=== PATIENT | male | born 1950 | race Caucasian/White ===

== ENCOUNTER 2017-02-23 04:05 | Inpatient (IN) | payer OTHER ==
[~2017-02-23] VITALS: Ht 177.8 cm; Wt 82.1 kg
[2017-02-23] VITALS (9 sets, daily range): BP systolic 97–133; BP diastolic 64–83; PULSE 45–58; TEMP 36.2–37; O2SAT 97–100; Ht 177.8 cm; Wt 82.1 kg
[2017-02-23] MEDS ORDERED: SODIUM CHLORIDE 0.9% 1000ML 1,000 ML IV STA (04:10)
[2017-02-23] MEDS ORDERED: METOPROLOL TARTRATE 1 MG/ML VIAL ONE (04:10)
[2017-02-23] MEDS ORDERED: SODIUM CHLORIDE 0.9% 500ML 500 ML IV STA (04:10)
--- NOTE | 2017-02-23 04:13 | EMERGENCY ROOM VISIT NOTE ---
History Report prepared by Kuldip: Mariela Mars Under the Supervision of: Dr. Sana Grace M.D. First contact with patient: 04:04 Stated Complaint: CARDIAC ASSESSMENT History of Present Illness The patient is a 67 year old male who presents to the Emergency Room for a cardiac assessment. The patient woke up early this morning with chest pain and diaphoresis. He notified the front desk host that he was feeling unwell and they called EMS about 10-15 minutes after his symptoms began. He was brought to the ED by ambulance and given 3 mg of versed en route to the ED. He was cardioverted twice en route. The patient has a history of atrial fibrillation and he has been in V-tach before about 3 years ago. He had his pacemaker replaced about 15 months ago. The patient had 3 beers tonight. Source of History: patient, EMS Onset: this morning Position: chest Timing: constant Associated Symptoms: + diaphoresis Review of Systems See HPI for pertinent positives & negatives. A total of 10 systems reviewed and were otherwise negative. Past Medical & Surgical Medical Problems: (1) Atrial fibrillation (2) Pacemaker (3) Ventricular tachycardia Surgical Problems: (1) AICD (automatic cardioverter/defibrillator) present Family History No pertinent history stated. Social History Alcohol Use: occasionally Marital Status: Occupation Status: employed Current/Historical Medications Scheduled Aspirin (Aspirin Ec), 81 MG PO DAILY Ferrous Sulfate (Iron), 325 MG PO DAILY Fish Oil ([place]-3), 1 CAP PO DAILY Glucosamine-Chondroitin (Glucosamine & Chondroitin 500-400 mg), 1 CAP PO DAILY Lovastatin (Mevacor), 20 MG PO DAILY Ramipril (Ramipril), 2.5 MG PO DAILY Sotalol Hcl (Sotalol Hcl), 120 MG PO BID Allergies Coded Allergies: No Known Allergies (Unverified , 02/23/17) Physical Exam Vital Signs Date Time Temp Pulse Resp B/P Pulse Ox O2 Delivery O2 Flow Rate FiO2 02/23/17 05:20 59 13 99 02/23/17 05:16 116/86 02/23/17 05:05 60 17 98 02/23/17 05:01 62 20 96/72 98 Nasal Cannula 2.0 02/23/17 05:00 60 19 97 02/23/17 04:55 60 21 99 02/23/17 04:50 61 22 99 02/23/17 04:46 84/68 02/23/17 04:45 69 18 97 02/23/17 04:44 94/72 02/23/17 04:40 60 22 100 02/23/17 04:35 57 10 106/71 100 02/23/17 04:30 61 14 98 02/23/17 04:25 95 23 91/74 02/23/17 04:22 88/61 02/23/17 04:21 74/62 02/23/17 04:20 153 16 02/23/17 04:19 154 20 72/64 98 Nasal Cannula 2.0 02/23/17 04:19 Nasal Cannula 2.0 02/23/17 04:18 93/53 02/23/17 04:16 155 02/23/17 04:15 157 19 69/52 02/23/17 04:13 43/36 02/23/17 04:10 156 15 76/56 Physical Exam Vital signs reviewed. General: Critically ill-appearing 67 year old male, in no significant distress, hypotensive. Initially unable to measure pulse ox or oral temperature. HEENT: No scleral icterus, PERRLA, neck supple. Atraumatic. Cardiovascular: Tachycardic rate and regular rhythm, no extra sounds. Pulmonary: Clear to auscultation bilaterally, normal work of breathing. Abdomen: Soft, nontender, nondistended, positive bowel sounds. Musculoskeletal: Atraumatic, no peripheral edema. Neurologic: Patient awake alert and oriented x 3, he is able to answer most questions appropriately, full strength in all 4 extremities. Cranial nerves 2 through 12 grossly intact. Speech is slurred. Skin: Warm, diaphoretic, no rash Medical Decision & Procedures ER Provider Diagnostic Interpretation: A repeat ECG reveals a sinus rhythm with PACs at 70 BPM, marked ST abnormality diffusely, no ST elevation. The sinus rhythm has replaced the wide complex tachycardia. Chest x-ray as interpreted by myself reveals pacemaker visualized, external defibrillation pads seen, no focal lung consolidation or failure, no pneumothorax. Laboratory Results 02/23/17 04:34 Red Blood Count 4.49, Mean Corpuscular Volume 94.4, Mean Corpuscular Hemoglobin 32.7, Mean Corpuscular Hemoglobin Concent 34.7, Mean Platelet Volume 9.8, Neutrophils (%) (Auto) 64.8, Lymphocytes (%) (Auto) 24.9, Monocytes (%) (Auto) 7.7, Eosinophils (%) (Auto) 1.9, Basophils (%) (Auto) 0.4, Neutrophils # (Auto) 5.07, Lymphocytes # (Auto) 1.95, Monocytes # (Auto) 0.60, Eosinophils # (Auto) 0.15, Basophils # (Auto) 0.03 02/23/17 04:34 Test 02/23/17 04:10 02/23/17 04:18 02/23/17 04:34 Bedside Hemoglobin 15.6 g/dl (14.0-18.0) Bedside Hematocrit 46 % (42-52) Bedside Sodium 143 mEq/L (135-144) Bedside Potassium 3.4 mEq/L (3.3-5.0) Bedside Chloride 106 mEq/L (101-112) Bedside Total CO2 20 mEq/l (24-31) Bedside Blood Urea Nitrogen 16 mg/dl (7-18) Bedside Creatinine 1.0 mg/dl (0.6-1.3) Bedside Glucose (other) 99 mg/dl (70-99) Bedside Ionized Calcium (Ishaan) 1.05 mmol/l (1.12-1.32) White Blood Count 7.82 K/uL (4.8-10.8) Red Blood Count 4.49 M/uL (4.7-6.1) Hemoglobin 14.7 g/dL (14.0-18.0) Hematocrit 42.4 % (42-52) Mean Corpuscular Volume 94.4 fL (80-100) Mean Corpuscular Hemoglobin 32.7 pg (25-34) Mean Corpuscular Hemoglobin Concent 34.7 g/dl (32-36) Platelet Count 164 K/uL (130-400) Mean Platelet Volume 9.8 fL (7.4-10.4) Neutrophils (%) (Auto) 64.8 % Lymphocytes (%) (Auto) 24.9 % Monocytes (%) (Auto) 7.7 % Eosinophils (%) (Auto) 1.9 % Basophils (%) (Auto) 0.4 % Neutrophils # (Auto) 5.07 K/uL (1.4-6.5) Lymphocytes # (Auto) 1.95 K/uL (1.2-3.4) Monocytes # (Auto) 0.60 K/uL (0.11-0.59) Eosinophils # (Auto) 0.15 K/uL (0-0.5) Basophils # (Auto) 0.03 K/uL (0-0.2) RDW Standard Deviation 41.4 fL (36.4-46.3) RDW Coefficient of Variation 12.2 % (11.5-14.5) Immature Granulocyte % (Auto) 0.3 % Immature Granulocyte # (Auto) 0.02 K/uL (0.00-0.02) Anion Gap 9.0 mmol/L (3-11) Est Creatinine Clear Calc Drug Dose 67.1 ml/min Estimated GFR () 80.1 Estimated GFR (Non- 69.1 BUN/Creatinine Ratio 15.0 (10-20) Calcium Level 8.0 mg/dl (8.5-10.1) Magnesium Level 2.1 mg/dl (1.8-2.4) Total Bilirubin 1.1 mg/dl (0.2-1) Direct Bilirubin 0.4 mg/dl (0-0.2) Aspartate Amino Transf (AST/SGOT) 92 U/L (15-37) Alanine Aminotransferase (ALT/SGPT) 79 U/L (12-78) Alkaline Phosphatase 38 U/L (45-117) Total Creatine Kinase 114 U/L (39-308) Creatine Kinase MB 3.1 ng/ml (0.5-3.6) Creatine Kinase MB Ratio 2.7 (0-3.0) Troponin I 0.079 ng/ml (0-0.045) Total Protein 6.2 gm/dl (6.4-8.2) Albumin 3.5 gm/dl (3.4-5.0) Thyroid Stimulating Hormone (TSH) 9.990 uIu/ml (0.300-4.500) Ethyl Alcohol mg/dL 51.0 mg/dl (0-3) Laboratory results per my review. Medications Administered Medications (Trade) Dose Ordered Sig/Andres Route Start Time Stop Time Status Last Admin Dose Admin Sodium Chloride (Nss 500ml) 500 ml @ 999 mls/hr Q31M STAT IV 02/23/17 04:10 02/23/17 04:40 DC 02/23/17 04:10 999 MLS/HR Amiodarone HCL/ Dextrose (Nexterone / D5w) 360 mg STK-MED ONCE .ROUTE 02/23/17 04:18 02/23/17 04:19 DC 02/23/17 04:30 360 MG Potassium Chloride (Kcl 10 Meq / Wtr) 10 meq STK-MED ONCE IV 02/23/17 04:25 02/23/17 04:26 DC 02/23/17 04:25 10 MEQ Magnesium Sulfate (Magnesium Sulfate) 1 gm STK-MED ONCE .ROUTE 02/23/17 04:27 02/23/17 04:28 DC 02/23/17 04:27 1 GM Fentanyl Citrate (Fentanyl Inj) 100 mcg STK-MED ONCE .ROUTE 02/23/17 04:42 02/23/17 04:43 DC 02/23/17 04:22 100 MCG Miscellaneous Information (Nursing Verbal Med Order) 1 ea ONE ONCE N/A 02/23/17 04:45 02/23/17 04:47 DC 02/23/17 04:10 1 EA Procedure Indication: Ventricular tachycardia Written consent was obtained after the risks and benefits were explained, including but not limited to pain, thermal burn, allergic reaction, aspiration, airway obstruction, laryngospasm, infection, hypotension, and cardiorespiratory arrest. At this time, the risks of the procedure are less than the risks of NOT performing the procedure. A time out was taken and the correct patient and procedure identified. The patient was on 100% via NRB and end tidal CO2 monitoring prior to the procedure. Suction, airway equipment, medications, respiratory equipment, ACLS cart, and appropriate personnel were prepared prior to the initiation of the procedure. Patient was given 100 mcg of Fentanyl. The biphasic defibrillator was set to 200 joules of energy and synched. After confirmation of sedation and "all clear" safety check the synchronized shock was delivered. This resulted in successful conversion of the dysrhythmia back into sinus rhythm. See nursing notes for dosages and times. There were no complications and the patient recovered uneventfully from the procedure. ECG Indication: chest pain Rate (beats per minute): 157 Rhythm: v-tach Findings: other (possible old inferior infarct; LVH, repolarization abnormality ) Comparison ECG Date: no prior available ED Course 0406: Past medical records reviewed. The patient was evaluated in room B1. A complete history and physical examination was performed. 0410: NSS 1000 ml @ 125 mls/hr IV, NSS 500 ml @ 999 mls/hr IV 0418: Amiodarone HCl/Dextrose 150 mg bolus 0422: Please see the procedure note for cardioversion. 0425: Potassium Chloride 10 meq IV 0427: Magnesium Sulfate 1 gm IV 0442: Fentanyl Citrate 100 mcg IV 0451: I reassessed the patient. He is doing well. I updated him on the results and treatment plan. I answered all pertaining questions that he had. He expressed understanding and verbalized agreement. 0458: At this time I spoke with Dr. Parsons. We discussed the patient's case. The patient will be evaluated by the [facility] for further management. Medical Decision Differential diagnosis: Etiologies such as premature contractions, electrolyte abnormality, cardiac dysrhythmia, thyroid dysfunction, pulmonary embolism, infection, gastrointestinal, alcohol intoxication, as well as others were entertained. This patient was evaluated and appeared to be in no distress. Patient is found to be hypotensive. He was hydrated with normal saline solution. Patient is found to be in a wide-complex tachycardia to EMS cardioversions. Patient was given 150 mg of IV amiodarone and cardioverted once again with 200 J biphasic. The patient did receive 100 g of fentanyl prior to this procedure. He was still be from the Versed given in route. The patient's blood pressure improved tremendously. He remained in a sinus rhythm with frequent PACs. Patient was given 1 g of IV magnesium, 10 mEq of IV potassium while awaiting formal laboratory work. Patient's troponin is found to be mildly elevated. He clinically was much improved after the above interventions. The case was discussed with the hospitalist service, Dr. Jackson who evaluated the patient for admission and further management. Please see his notes for further details. The patient is aware of the plan and agrees. Consults Time Called: [phone] Consulting Physician: Dr. Parsons Returned Call: [phone] At this time I spoke with Dr. Parsons. We discussed the patient's case. The patient will be evaluated by the [facility] for further management. Impression Primary Impression: Ventricular tachycardia Critical Care I have personally spent greater than 45 minutes of critical care time in the direct management of this patient. This includes bedside care, interpretation of diagnostic studies, and testing, discussion with consultants, patient, and family members, and other required patient management activities. This 45 minutes is in excess of all separately billable procedures. Scribe Attestation The scribe's documentation has been prepared under my direction and personally reviewed by me in its entirety. I confirm that the note above accurately reflects all work, treatment, procedures, and medical decision making performed by me. Departure Information Dispostion Being Evaluated By Hospitalist
[2017-02-23] MEDS ORDERED: AMIODARONE 360MG / 200ML D5W ONE (04:18)
[2017-02-23] MEDS ORDERED: POTASSIUM CHLORIDE 10 MEQ / 100ML WTR IV ONE (04:25)
[2017-02-23] MEDS ORDERED: MAGNESIUM SULFATE 1GM / D5W 1 GM BAG ONE (04:27)
[2017-02-23 04:31] LABS: ISTAT HEMOGLOBIN 15.6 g/dl (14.0-18.0); ISTAT IONIZED CALCIUM 1.05 mmol/l (1.12-1.32)
[2017-02-23] MEDS ORDERED: FENTANYL CITRATE INJ 50 MCG/1 ML 2 ML VIAL ONE (04:42)
[2017-02-23] MEDS ORDERED: NURSING VERBAL MED ORDER ONE (04:45)
[2017-02-23 04:48] LABS: BASO % 0.4 %; BASO ABS # 0.03 K/uL (0-0.2); COMPLETE YES; EOS % 1.9 %; HEMATOCRIT 42.4 % (42-52); IG% 0.3 %; LYMPH % 24.9 %; LYMPH ABS # 1.95 K/uL (1.2-3.4); MEAN CELL VOLUME 94.4 fL (80-100); MEAN CORPUSCULAR HEMOGLOBIN 32.7 pg (25-34); MEAN CORPUSCULAR HGB CONC 34.7 g/dl (32-36); MEAN PLATELET VOLUME 9.8 fL (7.4-10.4); MONO % 7.7 %; NEUT % 64.8 %; PLATELET COUNT 164 K/uL (130-400); RED BLOOD COUNT 4.49 M/uL (4.7-6.1); WHITE BLOOD COUNT 7.82 K/uL (4.8-10.8)
[2017-02-23] MEDS ORDERED: RAMI2.5C PO (04:52)
[2017-02-23] MEDS ORDERED: SOTA120T PO (04:53)
[2017-02-23] MEDS ORDERED: LOVA20TA4 PO (04:54)
[2017-02-23] MEDS ORDERED: ASPI81TA28 PO (04:55)
[2017-02-23] MEDS ORDERED: FERR1TAB23 PO (04:56)
[2017-02-23] MEDS ORDERED: OMEG10007 PO (04:57)
[2017-02-23] MEDS ORDERED: GLUC1CAP35 PO (04:58)
[2017-02-23] MEDS ORDERED: GLUC1CAP33 PO (05:00)
[2017-02-23 05:05] LABS: CREATININE 1.1 mg/dl (0.60-1.40); MAGNESIUM 2.1 mg/dl (1.8-2.4); POTASSIUM 3.7 mmol/L (3.5-5.1)
[2017-02-23 05:25] LABS: CKMB/CK RATIO 2.7 (0-3.0); THYROID STIMULATING HORMONE 9.99 uIu/ml (0.300-4.500)
[2017-02-23] MEDS ORDERED: MoRPHine SULFATE 2 MG/ML CARP IV PRN (05:30)
[2017-02-23] MEDS ORDERED: ACETAMINOPHEN 325 MG TAB PO PRN (05:30)
[2017-02-23] MEDS ORDERED: LORAZEPAM 2 MG/ML 1 ML VIAL IV PRN (05:30)
[2017-02-23] MEDS ORDERED: AMIODARONE IV BOLUS / DRIP IV STA (05:33)
[2017-02-23] MEDS ORDERED: AMIODARONE / D5W 200 ML IV SCH ×2 (07:00→13:00)
--- NOTE | 2017-02-23 07:10 | History and Physical ---
History & Physical Date & Time of Service: February 23, 2017 at 06:56 Chief Complaint: Aicd Present, Ventricular Tachycardia Primary Care Physician: No Doctor, Assigned History of Present Illness Source: patient The patient is a 67-year-old male who presents to the emergency department after having an episode of V. tach with a rate around 150 in the outpatient setting. Patient has a known history of V. tach, and has had his AICD fired 3 times in the past 2 months. There is a question as to whether it's been associated with high levels of activity in short bursts or low levels of activity in longer ranges. He reports that he's run a total of 17 marathons. In either case, the patient has been in town [facility] , had a 12 hour long day where he didn't eat much or drink much, then went out to local restaurant had a beer, then ate a chicken sandwich, then had 2 more beers , and then went back to his hotel and fell asleep Shortly thereafter he woke up, went to the bathroom, and while in the bathroom developed severe sweating, at which time he called for help. When EMS arrived he was found to be in V. tach at a rate of 150. While en route to the hospital he received 3 mg of Versed and was shocked twice externally. Upon arrival to the ED his heart rate was still around 150, and he was shocked again, then given an amiodarone 150 mg IV bolus followed by amiodarone drip and since then has converted to sinus rhythm. His systolic blood pressure was in the mid 70s while in V. tach, and since that time of conversion is now with systolic in the low 100s. Past Medical/Surgical History Medical Problems: (1) Atrial fibrillation Status: Chronic (2) Pacemaker Status: Chronic Social History Smoking Status: Never Smoker Smokeless Tobacco Use: No Alcohol Use: socially Drug Use: none Housing status: lives with family Occupational Status: employed Multi-Drug Resistant Organisms History of MDRO: No Allergies Coded Allergies: No Known Allergies (Unverified , 02/23/17) Home Medications Scheduled Aspirin (Aspirin Ec), 81 MG PO DAILY Ferrous Sulfate (Iron), 325 MG PO DAILY Fish Oil ([place]-3), 1 CAP PO DAILY Glucosamine-Chondroitin (Glucosamine & Chondroitin 500-400 mg), 1 CAP PO DAILY Lovastatin (Mevacor), 20 MG PO DAILY Ramipril (Ramipril), 2.5 MG PO DAILY Sotalol Hcl (Sotalol Hcl), 120 MG PO BID Review of Systems Constitutional: No chills, No fatigue, No fever, No problem reported, No sweats , No weakness, No weight loss Eyes: No diplopia, No discharge, No eye pain, No problem reported, No redness, No worsening of vision ENT: No dental problems, No hearing loss, No nasal symptoms, No problem reported, No sore throat, No tinnitus, No trouble swallowing, No unusual epistaxis Respiratory: No cough, No dyspnea at rest, No dyspnea on exertion, No hemoptysis, No problem reported, No shortness of breath, No sputum, No wheezing Cardiovascular: + palpitations, No PND, No chest pain, No claudication, No edema, No orthopnea, No problem reported Abdomen: No GI bleeding, No constipation, No diarrhea, No nausea, No pain, No problem reported, No vomiting Musculoskeletal: No calf pain, No joint pain, No muscle pain, No problem reported, No swelling Genitourinary - Male: No dysuria, No hematuria, No impotence, No lesions, No penile discharge, No problem reported, No urinary frequency, No urinary hesitancy, No urinary incontinence, No urinary retention, No urinary urgency Neurologic: No balance problems, No memory loss, No numbness/tingling, No paralysis, No problem reported, No vertigo, No weakness Psychiatric: No anhedonism, No anxiety, No depression symptoms, No insomnia, No problem reported, No substance abuse Endocrine: No excessive thirst, No excessive urination, No fatigue, No problem reported Hematologic / Lymphatic: No abnormal bleeding/bruising, No clotting problems, No night sweats, No problem reported, No swollen lymph nodes Integumentary: No bleeding, No color change, No itch, No new/changing skin lesions, No problem reported, No rash Allergic / Immunologic: No environmental allergies, No food allergies, No frequent infections, No hives, No pet sensitivities, No poor healing, No problem reported, No prolonged convalescence, No seasonal allergies Physical Exam Vital Signs Date Time Temp Pulse Resp B/P Pulse Ox O2 Delivery O2 Flow Rate FiO2 02/23/17 05:50 43 16 100 02/23/17 05:45 94/72 02/23/17 05:39 43 02/23/17 05:35 54 15 100 02/23/17 05:31 95/74 02/23/17 05:20 59 13 99 02/23/17 05:16 116/86 02/23/17 05:05 60 17 98 02/23/17 05:01 62 20 96/72 98 Nasal Cannula 2.0 02/23/17 05:00 60 19 97 02/23/17 04:55 60 21 99 02/23/17 04:50 61 22 99 02/23/17 04:46 84/68 02/23/17 04:45 69 18 97 02/23/17 04:44 94/72 02/23/17 04:40 60 22 100 02/23/17 04:35 57 10 106/71 100 02/23/17 04:30 61 14 98 02/23/17 04:25 95 23 91/74 02/23/17 04:22 88/61 02/23/17 04:21 74/62 02/23/17 04:20 153 16 02/23/17 04:19 154 20 72/64 98 Nasal Cannula 2.0 02/23/17 04:19 Nasal Cannula 2.0 02/23/17 04:18 93/53 02/23/17 04:16 155 02/23/17 04:15 157 19 69/52 02/23/17 04:13 43/36 02/23/17 04:10 156 15 76/56 General Appearance: WD/WN, no apparent distress Head: normocephalic, atraumatic Eyes: normal inspection, PERRL, EOMI, sclerae normal ENT: normal ENT inspection, hearing grossly normal, pharynx normal Neck: supple, no adenopathy, thyroid normal, no JVD, no carotid bruits, trachea midline Respiratory/Chest: chest non-tender, lungs clear, normal breath sounds, no respiratory distress, no accessory muscle use Cardiovascular: regular rate, rhythm, no edema, no gallop, no JVD, no murmur, normal peripheral pulses Abdomen/GI: normal bowel sounds, non tender, soft, no organomegaly, no pulsatile mass Back: normal inspection, no CVA tenderness, no muscle spasm, normal range of motion Extremities/Musculoskelatal: normal inspection, no calf tenderness, normal capillary refill, no pedal edema, normal range of motion, non-tender Neurologic/Psych: 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 II-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 nml as tested, no motor/sensory deficits, alert, normal mood/affect, normal reflexes, oriented x 3 Skin: normal color, warm/dry, no rash Lymphatic: no adenopathy Diagnostics Laboratory Results Results Past 24 Hours Test 02/23/17 04:10 02/23/17 04:18 02/23/17 04:34 Range/Units Bedside Hemoglobin 15.6 14.0-18.0 g/dl Bedside Hematocrit 46 42-52 % Bedside Sodium 143 135-144 mEq/L Bedside Potassium 3.4 3.3-5.0 mEq/L Bedside Chloride 106 101-112 mEq/L Bedside Total CO2 20 24-31 mEq/l Anion Gap 22.0 9.0 3-11 mmol/L Bedside Blood Urea Nitrogen 16 7-18 mg/dl Bedside Creatinine 1.0 0.6-1.3 mg/dl Bedside Glucose (other) 99 70-99 mg/dl Bedside Ionized Calcium (Ishaan) 1.05 1.12-1.32 mmol/l White Blood Count 7.82 4.8-10.8 K/uL Red Blood Count 4.49 4.7-6.1 M/uL Hemoglobin 14.7 14.0-18.0 g/dL Hematocrit 42.4 42-52 % Mean Corpuscular Volume 94.4 80-100 fL Mean Corpuscular Hemoglobin 32.7 25-34 pg Mean Corpuscular Hemoglobin Concent 34.7 32-36 g/dl Platelet Count 164 130-400 K/uL Mean Platelet Volume 9.8 7.4-10.4 fL Neutrophils (%) (Auto) 64.8 % Lymphocytes (%) (Auto) 24.9 % Monocytes (%) (Auto) 7.7 % Eosinophils (%) (Auto) 1.9 % Basophils (%) (Auto) 0.4 % Neutrophils # (Auto) 5.07 1.4-6.5 K/uL Lymphocytes # (Auto) 1.95 1.2-3.4 K/uL Monocytes # (Auto) 0.60 0.11-0.59 K/uL Eosinophils # (Auto) 0.15 0-0.5 K/uL Basophils # (Auto) 0.03 0-0.2 K/uL RDW Standard Deviation 41.4 36.4-46.3 fL RDW Coefficient of Variation 12.2 11.5-14.5 % Immature Granulocyte % (Auto) 0.3 % Immature Granulocyte # (Auto) 0.02 0.00-0.02 K/uL Sodium Level 144 136-145 mmol/L Potassium Level 3.7 3.5-5.1 mmol/L Chloride Level 110 98-107 mmol/L Carbon Dioxide Level 25 21-32 mmol/L Blood Urea Nitrogen 16 7-18 mg/dl Creatinine 1.10 0.60-1.40 mg/dl Est Creatinine Clear Calc Drug Dose 67.1 ml/min Estimated GFR () 80.1 Estimated GFR (Non- 69.1 BUN/Creatinine Ratio 15.0 10-20 Random Glucose 134 70-99 mg/dl Calcium Level 8.0 8.5-10.1 mg/dl Magnesium Level 2.1 1.8-2.4 mg/dl Total Bilirubin 1.1 0.2-1 mg/dl Direct Bilirubin 0.4 0-0.2 mg/dl Aspartate Amino Transf (AST/SGOT) 92 15-37 U/L Alanine Aminotransferase (ALT/SGPT) 79 12-78 U/L Alkaline Phosphatase 38 45-117 U/L Total Creatine Kinase 114 39-308 U/L Creatine Kinase MB 3.1 0.5-3.6 ng/ml Creatine Kinase MB Ratio 2.7 0-3.0 Troponin I 0.079 0-0.045 ng/ml Total Protein 6.2 6.4-8.2 gm/dl Albumin 3.5 3.4-5.0 gm/dl Thyroid Stimulating Hormone (TSH) 9.990 0.300-4.500 uIu/ml Ethyl Alcohol mg/dL 51.0 0-3 mg/dl Impression Assessment and Plan Sustained V. tach in the outpatient setting/status post total of 3 shocks/on amiodarone drip after 150 mg IV bolus per protocol--the patient has converted to sinus rhythm. He'll be admitted to the ICU. We'll continue amiodarone drip , normal saline with potassium chloride 20 mEq at 100 ML's per hour, sotalol 120 mg by mouth twice a day, enteric-coated aspirin 81 mg by mouth daily. Hold ramipril 2.5 mg by mouth daily. We'll consult Dr. Quiroga for cardiology assessment, and consult Dr. Barrett for nurse executive services. Hypercholesterolemia--continue lovastatin 20 mg by mouth daily. Level of Care Critical Care Advanced Directives Existing Advance Directive: No Existing Living Will: No Existing Power of Logistics Manager: No Resuscitation Status FULL RESUSCITATION VTE Prophylaxis VTE Risk Assessment Done? Y/N: Yes Risk Level: Moderate Given or contraindicated: SCD's Note Total Time: Critical Care 30 - 74 minutes
[2017-02-23] MEDS: ASPIRIN 81 MG ECTAB PO SCH (07:34)
[2017-02-23] MEDS: NSS + 20MEQ KCL 1000ML 1,000 ML IV SCH ×2 (07:34→19:06)
[2017-02-23] MEDS: FERROUS SULFATE 325 MG TAB PO SCH (07:35)
[2017-02-23] MEDS: LOVASTATIN 20 MG TAB PO SCH (07:35)
[2017-02-23] MEDS: OMEGA-3 (PURIFIED FISH OIL) 1 GM CAP PO SCH (07:35)
[2017-02-23] MEDS: SOTALOL HCL 80 MG TAB PO SCH ×2 (07:35→20:26)
--- NOTE | 2017-02-23 08:12 | DIAGNOSTIC IMAGING REPORT ---
CHEST ONE VIEW PORTABLE HISTORY: tachycardia COMPARISON: None. FINDINGS: The heart is mildly enlarged. Left-sided pacemaker/defibrillator. There is a defibrillator pad overlying the right hemithorax. There is mild central pulmonary vascular congestion without overt edema. No focal lung consolidations. No pleural effusions. No pneumothorax. IMPRESSION: Mild central pulmonary vascular congestion without overt edema. Electronically signed by: Brian Subramanian M.D. 02/23/2017 8:11 AM Dictated Date/Time: 02/23/2017 8:10 AM
[2017-02-23] MEDS ORDERED: [UNRECOGNIZED DRUG - OTHER] PO SCH (09:00)
[2017-02-23] MEDS ORDERED: GLUCOSAMINE CHONDROITIN PO SCH (09:00)
[2017-02-23 10:52] LABS: URINE APPEARANCE CLEAR (CLEAR); URINE BILIRUBIN NEG (NEG); URINE COLOR YELLOW; URINE EPITHELIAL CELL AUTO >30 /lpf (0-5); URINE NITRITE NEG (NEG); URINE PH 7.5 (4.5-7.5); URINE SPECIFIC GRAVITY 1.014 (1.000-1.030); UROBILINOGEN NEG (NEG); ZZUR CULT IF INDIC CLEAN CATCH YES
[2017-02-23 11:07] LABS: MANUAL MICROSCOPIC REQUIRED? NO; REVIEW REQ? YES; SULFASALICYLIC ACID POS (NEG)
[2017-02-23 11:13] LABS: URINE PATH CASTS 5-10 GRANULAR CASTS /lpf (0)
[2017-02-23 11:22] LABS: BENZODIAZEPINE, URINE POS (NEG); COCAINE,URINE NEG (NEG); PHENCYCLIDINE, URINE NEG (NEG)
--- NOTE | 2017-02-23 12:22 | CARDIOLOGY CONSULTATION ---
DATE OF CONSULTATION: 02/23/2017 REFERRING PHYSICIAN: Dmitri Barrett DO. CHIEF COMPLAINTS: Ventricular tachycardia. HISTORY OF PRESENT ILLNESS: Mr. Ike Isabel is a 67-year-old gentleman with a history of an idiopathic ventricular tachycardia. 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 The patient states that he in general had been feeling well, although yesterday's event was outside in the rain for an extended period of time. He did report feeling somewhat cold and perhaps not keeping up with fluids. That evening, the patient went out to a restaurant and had 3 beers prior to retiring. In the middle of the night, the patient woke with a sensation of feeling "anxious." He went to the bathroom to have a bowel movement and noticed that he was sweating profusely. At that point, he also noticed that he was quite dizzy and lightheaded and realized that he could not feel his pulse. The patient was able to alert the hotel staff and EMS was called. On their arrival, the patient was felt to be in ventricular tachycardia and an attempt was made to cardiovert him. He was brought to [facility] for additional evaluation, but was still in a wide-complex tachycardia on presentation. The patient was subsequently sedated and underwent an additional cardioversion, this time successful. The patient was subsequently admitted to the intensive care unit, where he is interviewed currently. At the time of the interview, the patient claims to be feeling well. He has no symptoms currently of diaphoresis or significant breathing trouble. He is not feeling anxious. He does not feel any palpitations. He is not lightheaded. During yesterday's event, he did not report any symptoms of chest discomfort or chest pressure. Otherwise, he has been feeling well leading up to this event and claims to be compliant with his medications. PAST MEDICAL HISTORY: 1. Atrial fibrillation. The patient has a very remote history of atrial fibrillation and is status post pulmonary vein isolation with good result. 2. Idiopathic ventricular tachycardia. The patient began to have episodes with running in 2007. Evaluation at that time revealed him to have idiopathic ventricular tachycardia. He did undergo an attempted VT ablation and implantation of a dual-chamber Medtronic defibrillator. He does recall around that time undergoing coronary angiography and he has had recent stress testing and echocardiography. He is not known to have a cardiomyopathy. 3. Prostate cancers. 4. Hypercholesterolemia. PAST SURGICAL HISTORY: 1. Prostatectomy. 2. Defibrillator implantation initially in 2007 with a generator change in 2014. This is a Medtronic dual chamber device. 3. Pulmonary vein isolation in 2006 at the [facility]. 4. VT ablation, unknown date. OUTPATIENT MEDICATIONS: Include sotalol 120 mg b.i.d., ramipril, lovastatin, aspirin 81 mg daily, fish oil and iron supplementation. MEDICAL ALLERGIES: No known medical allergies. FAMILY HISTORY: No family history of premature coronary artery disease or sudden cardiac . SOCIAL HISTORY: The patient is an avid runner. 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 He has no history of tobacco use and drinks alcohol socially. Currently lives in [place]. REVIEW OF SYSTEMS: A complete 10-system review of systems was performed and the pertinent positives noted in the history of present illness, the remainder being negative. PHYSICAL EXAMINATION: GENERAL: The patient does not appear in any acute distress. He is a pleasant individual, who is alert and oriented. His mood and affect appeared normal. He answered all questions appropriately. CURRENT VITAL SIGNS: Include a blood pressure of 98/64 with a pulse of 54. HEENT: His sclerae are anicteric. His pupils are equal and react to light and accommodation. Extraocular movements were intact. NECK: Palpation of submandibular region did not reveal any significant lymphadenopathy. The carotids are palpable bilaterally. I do not appreciate any bruits on auscultation. There is no evidence of jugular venous distention. The thyroid is not enlarged. LUNGS: Auscultation of both lungs revealed them to be clear in the apices. He had good air movement without rales, wheezes or rhonchi. There was no use of accessory muscles of respiration. CARDIAC: Reveals him to be in a regular rhythm. S1 and S2 appear to be normal. I did not appreciate any murmurs on exam. PMI was not markedly displaced. Examination of the chest revealed him to have a well-healed defibrillator in the left upper chest area. There is no evidence of hematoma or erythema. ABDOMEN: Soft and nontender. EXTREMITIES: Evaluation of both wrists revealed radial pulses that were equal in intensity. There is no evidence of cyanosis or clubbing. Evaluation of lower extremities reveals SCDs in place, but no notable edema. I did not appreciate any rashes on examination today. LABORATORY STUDIES: Include a white cell count of 7.8, a hemoglobin of 14.7 and a platelet count of 164. Sodium is 144, potassium is 3.7, BUN was 16, and creatinine was 1.1. Cardiac troponin drawn at the time of admission was 0.079. TSH was elevated at 9.9. IMAGING DATA: A 12-lead EKG was obtained at the time of presentation, which revealed a wide-complex tachycardia of unusual morphology. I performed an interrogation of the patient's ICD, which did not reveal any recorded tachyarrhythmia episodes. Also performed reprogramming of the device to include a monitoring zone and lowered the initial therapy zone to 163 beats per minute. ASSESSMENT AND PLAN: 1. Sustained ventricular tachycardia: The patient has a history of idiopathic ventricular tachycardia. 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 It seems that he has not had an episode in several years and episodes in general tend to occur when he is either under stress or perhaps dehydrated or otherwise sick. It is unclear whether the events experienced yesterday including a prolonged period of being cold in the rain associated with mild dehydration and alcohol intake precipitated this episode. He does not have any electrolyte derangements. He has a very mild elevation in cardiac troponin, which may be demand related given the hypotension he experienced on presentation. He was started on amiodarone, but I think we can safely discontinue this and reinitiate his sotalol at the current dose. 2. Elevated cardiac troponin. This is likely demand related. I do not believe that the event yesterday resulted from an acute coronary syndrome. The patient did not have symptoms of chest discomfort. He is known to have a normal stress test within the past 2 years. He received no specific treatment for an acute coronary syndrome and currently is feeling well. I think we can trend his biomarkers and make a decision regarding the need for any ischemic evaluation later today. 3. Elevated thyroid-stimulating hormone: The patient may have subclinical hypothyroidism. We will defer evaluation to the primary medical service. Does not Sound like this played a significant role in his event yesterday, but should be addressed nonetheless. FINAL RECOMMENDATIONS: 1. Discontinue amiodarone. 2. Continue oral sotalol. 3. Transfer to telemetry zamora. 4. Increase ambulation and activity today. 5. Continue to trend cardiac biomarkers. 6. Address elevated thyroid-stimulating hormone. 7. In the absence of new findings, consider discharge tomorrow. MTDD
--- NOTE | 2017-02-23 13:03 | Critical Care Consultation ---
Critical Care Consultation Date of Consultation: February 23, 2017. Attending Physician: Manish Parsons M.D. Reason for Consultation: Ventricular tachycardia with defibrillation History of Present Illness This very pleasant 67-year-old male, with a history of paroxysmal ventricular tachycardia and AICD in place. He lives in [facility], and is in [place] on business. The patient notes that he is in his usual state of health yesterday. 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 After evening meal, and 3 units of beer he states that he went back to his hotel room and in his usual state of health was able to go to sleep. He suddenly awoken at 3 in the morning,he felt extremely diaphoretic. He walked to the washroom had a bowel movement, and states that the 20 feet he needed to walk to get back to his bed and felt very daunting. He also felt lightheaded, and dizzy though he did not faint. He denies any chest pain. He called EMS who arrived at the scene. He was defibrillated once prior to transport, and then another 2 times en route to the ED. In the emergency department he was started on an amiodarone infusion after which she did revert back into sinus rhythm at a rate of 70. The patient states that he has been generally very active through the course of his life, and has completed over a dozen marathons. His V. tach was diagnosed in his early 50s, after having multiple episodes of the symptoms described as above and this current presentation. In the past 10 years he has stopped running. He states it is less observed V. tach was 5 years ago. His first AICD was placed in January 2008, and was then replaced again in 2014. States that his pacemaker is 2 settings, likely overdrive and defibrillated. Prior to arrival, the patient was taking sotalol 120 mg twice a day. He denies any past cardiovascular history, including [place], though he is on primary prevention with ASA, lovastatin and Ramapril. Past Medical/Surgical History Paroxysmal ventricular tachycardia History of paroxysmal atrial fibrillation AICD placement, 2007 AICD placement, 2014 Family History No other family history was noted by the patient Social History Smoking Status: Never Smoker Smokeless Tobacco Use: No Alcohol Use: socially Drug Use: none Marital Status: Occupation Status: employed Allergies Coded Allergies: No Known Allergies (Unverified , 02/23/17) Home Medications Scheduled Aspirin (Aspirin Ec), 81 MG PO DAILY Ferrous Sulfate (Iron), 325 MG PO DAILY Fish Oil (Korbel-3), 1 CAP PO DAILY Glucosamine-Chondroitin (Glucosamine & Chondroitin 500-400 mg), 1 CAP PO DAILY Lovastatin (Mevacor), 20 MG PO DAILY Ramipril (Ramipril), 2.5 MG PO DAILY Sotalol Hcl (Sotalol Hcl), 120 MG PO BID Current Inpatient Medications Current Inpatient Medications Medications (Trade) Dose Ordered Sig/Andres Route Start Time Stop Time Status Last Admin Dose Admin Acetaminophen (Tylenol Tab) 650 mg Q4H PRN PO 02/23/17 05:30 03/25/17 05:29 Lorazepam (Ativan Inj) 0.5 mg Q4H PRN IV 02/23/17 05:30 03/25/17 05:29 Morphine Sulfate (MoRPHine SULFATE INJ) 2 mg Q2H PRN IV 02/23/17 05:30 03/09/17 05:29 Aspirin (Ecotrin Tab) 81 mg DAILY PO 02/23/17 09:00 03/25/17 08:59 02/23/17 07:34 81 MG Fish Oil (Korbel-3 (Purified Fish Oil) Cap) 1 gm DAILY PO 02/23/17 09:00 03/25/17 08:59 02/23/17 07:35 1 GM Lovastatin (Mevacor Tab) 20 mg DAILY PO 02/23/17 09:00 03/25/17 08:59 02/23/17 07:35 20 MG Ferrous Sulfate (Feosol Tab) 325 mg QAM PO 02/23/17 09:00 03/25/17 08:59 02/23/17 07:35 325 MG Sotalol HCl 120 mg 120 mg BID PO 02/23/17 09:00 03/25/17 08:59 02/23/17 07:35 120 MG Potassium Chloride/Sodium Chloride (Nss + 20meq KCl 1000ml) 1,000 ml @ 100 mls/hr Q10H IV 02/23/17 07:00 03/25/17 06:59 02/23/17 07:34 100 MLS/HR Review of Systems 10 point review of systems was otherwise negative unless stated above in the history of present illness Physical Exam Date Time Temp Pulse Resp B/P Pulse Ox O2 Delivery O2 Flow Rate FiO2 02/23/17 12:00 Room Air 02/23/17 12:00 36.4 53 18 97/71 97 Room Air 02/23/17 10:00 51 15 99/67 99 Room Air 02/23/17 09:55 51 15 99 02/23/17 08:00 36.4 58 16 100/72 100 Nasal Cannula 2.0 02/23/17 08:00 Nasal Cannula 2.0 02/23/17 06:00 36.4 54 18 98/64 98 Room Air 02/23/17 05:50 43 16 100 02/23/17 05:45 94/72 02/23/17 05:39 43 02/23/17 05:35 54 15 100 02/23/17 05:31 95/74 02/23/17 05:20 59 13 99 02/23/17 05:16 116/86 02/23/17 05:05 60 17 98 02/23/17 05:01 62 20 96/72 98 Nasal Cannula 2.0 02/23/17 05:00 60 19 97 02/23/17 04:55 60 21 99 02/23/17 04:50 61 22 99 02/23/17 04:46 84/68 02/23/17 04:45 69 18 97 02/23/17 04:44 94/72 02/23/17 04:40 60 22 100 02/23/17 04:35 57 10 106/71 100 02/23/17 04:30 61 14 98 02/23/17 04:25 95 23 91/74 02/23/17 04:22 88/61 02/23/17 04:21 74/62 02/23/17 04:20 153 16 02/23/17 04:19 154 20 72/64 98 Nasal Cannula 2.0 02/23/17 04:19 Nasal Cannula 2.0 02/23/17 04:18 93/53 02/23/17 04:16 155 02/23/17 04:15 157 19 69/52 02/23/17 04:13 43/36 02/23/17 04:10 156 15 76/56 General Appearance: well-appearing, WD/WN Eyes: PERRLA, EOMI ENT: normal ear exam, normal nasal exam, normal mouth exam Neck: no tenderness, no stridor Respiratory: breath sounds normal, clear to auscultation Cardiovasular: regular rate/rhythm, normal S1S2, no murmur Abdomen: non tender, normal bowel sounds, no rebound Back: no midline tenderness, no CVA tenderness Upper Extremities: no edema, no deformity Lower Extremities: no edema, no deformity Neuro: alert, oriented x 3 Laboratory Results Last 24 Hours Test 02/23/17 04:18 02/23/17 04:34 02/23/17 07:28 02/23/17 10:35 Bedside Hemoglobin 15.6 g/dl Bedside Hematocrit 46 % Bedside Sodium 143 mEq/L Bedside Potassium 3.4 mEq/L Bedside Chloride 106 mEq/L Bedside Total CO2 20 mEq/l Anion Gap 22.0 mmol/L 9.0 mmol/L Bedside Blood Urea Nitrogen 16 mg/dl Bedside Creatinine 1.0 mg/dl Bedside Glucose (other) 99 mg/dl Bedside Ionized Calcium (Ishaan) 1.05 mmol/l White Blood Count 7.82 K/uL Red Blood Count 4.49 M/uL Hemoglobin 14.7 g/dL Hematocrit 42.4 % Mean Corpuscular Volume 94.4 fL Mean Corpuscular Hemoglobin 32.7 pg Mean Corpuscular Hemoglobin Concent 34.7 g/dl Platelet Count 164 K/uL Mean Platelet Volume 9.8 fL Neutrophils (%) (Auto) 64.8 % Lymphocytes (%) (Auto) 24.9 % Monocytes (%) (Auto) 7.7 % Eosinophils (%) (Auto) 1.9 % Basophils (%) (Auto) 0.4 % Neutrophils # (Auto) 5.07 K/uL Lymphocytes # (Auto) 1.95 K/uL Monocytes # (Auto) 0.60 K/uL Eosinophils # (Auto) 0.15 K/uL Basophils # (Auto) 0.03 K/uL RDW Standard Deviation 41.4 fL RDW Coefficient of Variation 12.2 % Immature Granulocyte % (Auto) 0.3 % Immature Granulocyte # (Auto) 0.02 K/uL Sodium Level 144 mmol/L Potassium Level 3.7 mmol/L Chloride Level 110 mmol/L Carbon Dioxide Level 25 mmol/L Blood Urea Nitrogen 16 mg/dl Creatinine 1.10 mg/dl Est Creatinine Clear Calc Drug Dose 67.1 ml/min Estimated GFR () 80.1 Estimated GFR (Non- 69.1 BUN/Creatinine Ratio 15.0 Random Glucose 134 mg/dl Calcium Level 8.0 mg/dl Magnesium Level 2.1 mg/dl Total Bilirubin 1.1 mg/dl Direct Bilirubin 0.4 mg/dl Aspartate Amino Transf (AST/SGOT) 92 U/L Alanine Aminotransferase (ALT/SGPT) 79 U/L Alkaline Phosphatase 38 U/L Total Creatine Kinase 114 U/L Creatine Kinase MB 3.1 ng/ml Creatine Kinase MB Ratio 2.7 Troponin I 0.079 ng/ml Total Protein 6.2 gm/dl Albumin 3.5 gm/dl Thyroid Stimulating Hormone (TSH) 9.990 uIu/ml Ethyl Alcohol mg/dL 51.0 mg/dl Bedside Glucose 111 mg/dl Urine Color YELLOW Urine Appearance CLEAR Urine pH 7.5 Urine Specific [place] 1.014 Urine Protein 1+ Urine Glucose (UA) TRACE Urine Ketones NEG Urine Occult Blood 1+ Urine Nitrite NEG Urine Bilirubin NEG Urine Urobilinogen NEG Urine Leukocyte Esterase NEG Urine WBC (Auto) 10-30 /hpf Urine RBC (Auto) 5-10 /hpf Urine Hyaline Casts (Auto) 5-10 /lpf Urine Epithelial Cells (Auto) >30 /lpf Urine Bacteria (Auto) NEG Urine Renal Epithelial Cells /lpf Urine Pathogenic Casts 5-10 GRANULAR CASTS /lpf Urine Opiates Screen NEG Urine Methadone, Qualitative NEG Urine Barbiturates NEG Urine Phencyclidine (PCP) Level NEG Ur Amphetamine/Methamphetamine NEG MDMA (Ecstasy) Screen NEG Urine Benzodiazepines Screen POS Urine Cocaine Metabolite NEG Urine Marijuana (THC) NEG Test 02/23/17 11:25 Bedside Glucose 120 mg/dl Diagnostic Results 23-FEB-2017 04:10:10 Wide QRS tachycardia Left axis deviation Left ventricular hypertrophy with QRS widening and repolarization abnormality Inferior infarct , age undetermined Cannot rule out Anteroseptal infarct , age undetermined Abnormal ECG No previous ECGs available 23-FEB-2017 04:24:36 Poor data quality, interpretation may be adversely affected Sinus rhythm with Premature atrial complexes Marked ST abnormality, possible inferior subendocardial injury Marked ST abnormality, possible anterolateral subendocardial injury Abnormal ECG When compared with ECG of 23-FEB-2017 04:10, (unconfirmed) Sinus rhythm has replaced Wide QRS tachycardia Vent. rate has decreased BY 87 BPM Assessment & Plan 67 old male with history of paroxysmal V. tach and AICD in place, presenting with another episode of V. tach without AICD defibrillation. AICD likely has 2 modes of overdrive pacing defibrillation. Heart rate may not of been high enough when he was tachycardic to either overdrive pace or defibrillation. A device interrogation at this point would be useful, with adjusted thresholds per results. Our plan for him is as follows: NEUROLOGICAL - GCS: 15 - RASS: 0 - CAM-ICU: Negative CARDIAC - BP: 90-100 systolic/60s 70 diastolic - The patient is maintaining MAP > 65 - Currently the patient does not require either vasopressor for IV fluids. Paroxysmal ventricular tachycardia - Resolved after starting amiodarone infusion - Cardiology's consultation on the case, the recommendations are appreciated, particularly with device settings - Mildly positive troponin 0.079; this does need to be trended though I suspect that it is related to supply demand mismatch in the setting of tachycardia and medication adjustments - EKG with chest pain - Continue telemetry monitoring - Continue aspirin, lovastatin, and ramipril RESPIRATORY - Respiratory status is stable; no evidence of tachypnea or hypoxia - No chronic respiratory issues GASTROINTESTINAL - Diet: AHA heart healthy diet - GI Prophylaxis: The patient is on a full diet so PPI can be withheld at this time - Bowel regimen: Monitor for bowel movements Transaminitis - AST 92, ALP 79 - Likely secondary to mild to moderate alcohol consumption the night prior RENAL//ENDOCRINE -Continue to monitor daily I's and O's; UO goal greater than 0.5 ml/kg/hr - Cr: 1.1 Baseline unclear, as [place] - There are no gross electrolyte abnormalities - BS-120 Elevated TSH - TSH noted to be 9.9; will order a free T4 level and treatment depending on what the result shows - We'll be signed out to the hospitalist service HEME/ID - Afebrile, no leukocytosis, no evidence of active infection - Hb/Hct 14.7/42.4 - DVT Prophylaxis: Is ambulatory and will be encouraged to mobilize ad deepti SCDs CODE STATUS - Full Code DISPOSITION - OT/PT: Patient has in the home setting, therefore therapy orders are not indicated at this time - Stable for transfer to the telemetry unit Resident Physician Supervision Note: Dr. Jose was resident physician during care of patient. I separately evaluated patient and did history and exam. I discussed the case with the resident and generally agree with the findings and plan. Discussed with cardiology at bedside who adjusted the AICD settings, stable for downgrade. Documented By: Dmitri Barrett DO
[2017-02-23 14:20] LABS: ESTIMATED AVERAGE GLUCOSE 97 mg/dl; HA1C FLAG Normal (Normal)
[2017-02-23 14:40] LABS: CKMB/CK RATIO 9.4 (0-3.0)
--- NOTE | 2017-02-23 15:24 | ECHOCARDIOGRAM REPORT ---
*NOTICE TO RECEIVING [employer] This information is strictly Confidential and protected under [place] law. [place] law prohibits you from making any further disclosure of this information unless further disclosure is expressly permitted by the written consent of the person to whom it pertains or is authorized by law. A general authorization for the release of medical or other information is not sufficient for this purpose. Hospital accepts no responsibility if the information is made available to any other person, INCLUDING THE PATIENT. Interpretation Summary * Name: MELO AGUIRRE Study Date: 02/23/2017 01:22 PM BP: 97/71 mmHg * Patient Location: .MSICU\S\E110\S\1 HR: 50 * : 1950 (M/d/yyyy) Gender: Male Height: 70 in * Age: 67 yrs Ethnicity: [place] Weight: 160 lb * Ordering Physician: Manish Parsons * Referring Physician: Self, Referred * Performed By: Maryanne Gastelum RDCS * * Reason For Study: VTACH * BSA: 1.9 m2 * -- Conclusions -- * Left ventricular systolic function is normal. * The right ventricular systolic function is normal as assessed by tricuspid annular plane systolic excursion (TAPSE) (normal >1.5 cm). * There is moderate mitral regurgitation. * There is moderate tricuspid regurgitation. Procedure Details * A complete two-dimensional transthoracic echocardiogram was performed (2D, M-mode, Doppler and color flow Doppler). Left Ventricle * The left ventricle is normal in size. * There is normal left ventricular wall thickness. * Ejection Fraction = 55-60%. * Left ventricular systolic function is normal. * Normal diastolic function Right Ventricle * The right ventricle is normal in size and function. * There is a pacemaker lead in the right ventricle. * The right ventricular systolic function is normal as assessed by tricuspid annular plane systolic excursion (TAPSE) (normal >1.5 cm). Atria * The left atrial size is normal. * Right atrial size is normal. * There is a catheter/pacemaker lead seen in the right atrium. Mitral Valve * The mitral valve anatomy is normal. * There is moderate mitral regurgitation. Tricuspid Valve * The tricuspid valve is not well visualized, but is grossly normal. * There is moderate tricuspid regurgitation. * Right ventricular systolic pressure is normal. Aortic Valve * The aortic valve is normal in structure and function. * No hemodynamically significant valvular aortic stenosis. * There is no significant aortic regurgitation. Great Vessels * The aortic root is normal size. Pericardium/Pleural * There is no pericardial effusion. Great Vessels * Normal inferior vena cava diameter and respiratory variation suggests normal central venous pressure. MMode 2D Measurements and Calculations IVSd 1.1 cm IVSs 1.5 cm LVIDd 4.6 cm LVIDs 3.3 cm LVPWd 1.4 cm LVPWs 1.5 cm IVS/LVPW 0.75 FS 28.3 % EDV(Teich) 99.5 ml ESV(Teich) 45.1 ml EF(Teich) 54.7 % EDV(cubed) 100.2 ml ESV(cubed) 36.9 ml EF(cubed) 63.2 % % IVS thick 45.6 % % LVPW thick 6.9 % LV mass(C)d 216.6 grams LV mass(C)dI 114.1 grams/m\S\2 LV mass(C)s 185.8 grams LV mass(C)sI 97.9 grams/m\S\2 SV(Teich) 54.5 ml SI(Teich) 28.7 ml/m\S\2 SV(cubed) 63.3 ml SI(cubed) 33.3 ml/m\S\2 Ao root diam 3.4 cm Ao root area 9.1 cm\S\2 LA dimension 3.6 cm LA/Ao 1.0 LVAd ap4 34.0 cm\S\2 LVLd ap4 8.4 cm EDV(MOD-sp4) 111.4 ml EDV(sp4-el) 116.0 ml LVAs ap4 21.0 cm\S\2 LVLs ap4 8.0 cm ESV(MOD-sp4) 51.6 ml ESV(sp4-el) 46.9 ml EF(MOD-sp4) 53.7 % EF(sp4-el) 59.6 % LVAd ap2 33.4 cm\S\2 LVLd ap2 8.8 cm EDV(MOD-sp2) 110.2 ml EDV(sp2-el) 107.9 ml LVAs ap2 20.6 cm\S\2 LVLs ap2 7.6 cm ESV(MOD-sp2) 52.7 ml ESV(sp2-el) 47.3 ml EF(MOD-sp2) 52.2 % EF(sp2-el) 56.2 % LVLd %diff 4.1 % EDV(MOD-bp) 111.2 ml LVLs %diff -5.08 % ESV(MOD-bp) 53.2 ml EF(MOD-bp) 52.2 % SV(MOD-sp4) 59.9 ml SI(MOD-sp4) 31.5 ml/m\S\2 SV(MOD-sp2) 57.5 ml SI(MOD-sp2) 30.3 ml/m\S\2 SV(MOD-bp) 58.0 ml SI(MOD-bp) 30.6 ml/m\S\2 SV(sp4-el) 69.1 ml SI(sp4-el) 36.4 ml/m\S\2 SV(sp2-el) 60.6 ml SI(sp2-el) 31.9 ml/m\S\2 Doppler Measurements and Calculations MV E max elyssa 88.3 cm/sec MV A max elyssa 35.4 cm/sec MV E/A 2.5 MV dec time 0.23 sec Ao V2 max 102.8 cm/sec Ao max PG 4.2 mmHg Ao max PG (full) 0.97 mmHg LV V1 max PG 3.3 mmHg LV V1 max 90.2 cm/sec MR max elyssa 495.2 cm/sec MR max PG 98.1 mmHg TR max elyssa 250.8 cm/sec
[2017-02-24] MEDS: NSS + 20MEQ KCL 1000ML 1,000 ML IV SCH (03:00)
[2017-02-24 04:00] VITALS: BP 91/60; PULSE 48; TEMP 36.7; O2SAT 98
[2017-02-24 05:54] LABS: BASO % 0.4 %; BASO ABS # 0.02 K/uL (0-0.2); COMPLETE YES; EOS % 3.5 %; HEMATOCRIT 37.2 % (42-52); IG% 0.2 %; LYMPH % 28.6 %; LYMPH ABS # 1.57 K/uL (1.2-3.4); MEAN CELL VOLUME 95.4 fL (80-100); MEAN CORPUSCULAR HEMOGLOBIN 32.6 pg (25-34); MEAN CORPUSCULAR HGB CONC 34.1 g/dl (32-36); MEAN PLATELET VOLUME 9.9 fL (7.4-10.4); MONO % 10.4 %; NEUT % 56.9 %; PLATELET COUNT 125 K/uL (130-400); WHITE BLOOD COUNT 5.49 K/uL (4.8-10.8)
[2017-02-24 06:03] LABS: INR 1.1 (0.9-1.1); PROTHROMBIN TIME (PATIENT) 12.2 SECONDS (9.0-12.0)
[2017-02-24 06:35] LABS: CALCIUM 7.5 mg/dl (8.5-10.1); CREATININE 0.68 mg/dl (0.60-1.40); POTASSIUM 3.9 mmol/L (3.5-5.1)
--- NOTE | 2017-02-24 07:18 | DIAGNOSTIC IMAGING REPORT ---
CHEST ONE VIEW PORTABLE CLINICAL HISTORY: Ventricular tachycardia. COMPARISON STUDY: Chest radiograph February 23, 2017. FINDINGS: Pacer pad overlies the chest. There is a left subclavian pacer/AICD. No pneumothorax or pleural effusion is present. There is no evidence of pulmonary edema. Mild cardiomegaly is noted. IMPRESSION: 1. No acute cardiopulmonary findings. 2. Mild cardiomegaly. Electronically signed by: Nelson Dominguez M.D. 02/24/2017 7:17 AM Dictated Date/Time: 02/24/2017 7:16 AM
--- NOTE | 2017-02-24 07:29 | Discharge Instructions ---
Discharge Instructions Date of Service February 24, 2017. Admission Reason for Admission: Aicd Present, Ventricular Tachycardia Discharge Discharge Diagnosis / Problem: Ventricular tachycardia Discharge Goals Goal(s): Decrease discomfort, Improve function, Increase independence, Improve disease control, Learn about illness, Diagnostic testing, Therapeutic intervention Activity Recommendations Activity Limitations: resume your previous activity Exercise/Sports Limitations: none Shower/Bathe: no limitations . Instructions / Follow-Up Instructions / Follow-Up Patient to be discharged home Please continue taking sotalol No other changes in medications If worsening chest pain, palpitations, shortness of breath please report to ER Current Hospital Diet Patient's current hospital diet: AHA Diet (Heart Healthy) Discharge Diet Recommended Diet: AHA Diet (Heart Healthy) Pending Studies Studies pending at discharge: no Laboratory Results Hemoglobin A1c Test 02/23/17 14:03 Range/Units Estimated Average Glucose 97 mg/dl Hemoglobin A1c 5.0 4.5-5.6 % Medical Emergencies . Who to Call and When: Medical Emergencies: If at any time you feel your situation is an emergency, please call 911 immediately. . Non-Emergent Contact Non-Emergency issues call your: Primary Care Provider Call Non-Emergent contact if: you have a fever, your pain is worsening . . "Provider Documentation" section prepared by Lavell Dunn. . VTE Core Measure Inpt VTE Proph given/why not?: SCD's
[2017-02-24 07:30] VITALS: BP 114/76; PULSE 48; TEMP 36.7; O2SAT 98
[2017-02-24] MEDS: LOVASTATIN 20 MG TAB PO SCH (07:58)
[2017-02-24] MEDS: OMEGA-3 (PURIFIED FISH OIL) 1 GM CAP PO SCH (07:58)
[2017-02-24] MEDS: SOTALOL HCL 80 MG TAB PO SCH (07:58)
[2017-02-24] MEDS: ASPIRIN 81 MG ECTAB PO SCH (07:58)
[2017-02-24] MEDS: FERROUS SULFATE 325 MG TAB PO SCH (07:58)
[2017-02-24] MEDS ORDERED: MAG SULFATE 50% 1GM/2ML VIAL IV ONE (08:59)
[2017-02-24] MEDS ORDERED: SODIUM CHLORIDE 0.9% INJ 10 ML VIAL IV ONE (08:59)
[2017-02-24] MEDS ORDERED: AMIODARONE HCL INJ 50 MG/ML 3 ML VIAL IV ONE (08:59)
[2017-02-24] MEDS ORDERED: DEXTROSE 5% 100 ML BAG IV ONE (08:59)
[2017-02-24 09:00] VITALS: BP 104/76; PULSE 54; TEMP 36.7; O2SAT 98
--- NOTE | 2017-02-24 15:12 | Discharge Summary ---
Discharge Summary Date of Service February 24, 2017. Discharge Summary Admission Date: February 23, 2017 at 05:26 Discharge Date: February 24, 2017 Discharge Disposition: Home Principal Diagnosis: Vtach Consultations: Cardiology Dye Room Helper Medication Reconciliation Continued Medications: Aspirin (Aspirin Ec) 81 Mg Tab 81 MG PO DAILY Ferrous Sulfate (Iron) 325 Mg Tab 325 MG PO DAILY Fish Oil ([place]-3) 1 Ea Cap 1 CAP PO DAILY, CAP Glucosamine-Chondroitin (Glucosamine & Chondroitin 500-400 mg) 1 Cap Cap 1 CAP PO DAILY Lovastatin (Mevacor) 20 Mg Tab 20 MG PO DAILY, TAB Ramipril (Ramipril) 2.5 Mg Cap 2.5 MG PO DAILY, CAP Sotalol Hcl (Sotalol Hcl) 120 Mg Tab 120 MG PO BID Discharge Exam Review of Systems: Constitutional: No chills, No fever Respiratory: No cough, No sputum Cardiovascular: No chest pain, No orthopnea Abdomen: No diarrhea, No nausea, No pain, No vomiting Musculoskeletal: No joint pain, No muscle pain Genitourinary - Male: No dysuria, No hematuria Physical Exam: General Appearance: WD/WN, no apparent distress Neck: supple, no adenopathy Respiratory/Chest: chest non-tender, lungs clear, normal breath sounds Cardiovascular: no edema, no JVD Abdomen / GI: non tender, soft Neurologic/Psychiatric: alert, oriented x 3 Hospital Course Sustained ventricular tachycardia resolved with 3 shocks/on amiodarone drip after 150 mg IV bolus per protocol--the patient has converted to sinus rhythm. The patient has a history of idiopathic ventricular tachycardia. He has not had an episode in several years and episodes in general tend to occur when he is either under stress or perhaps dehydrated or otherwise sick. He does not have any electrolyte derangements. He has a very mild elevation in cardiac troponin, which may be demand related given the hypotension he experienced on presentation. Patient remained in sinus during hospital course and his sotalol at the current dose was reinitiated Dyslipidemia - Cont statin Total Time Spent: Greater than 30 minutes This includes examination of the patient, discharge planning, medication reconciliation, and communication with other providers. Discharge Instructions Please refer to the electronic Patient Visit Report (Discharge Instructions) for additional information.
[2017-02-27 10:16] LABS: HYDROXYETHYLFLURAZEPAM CONF NEGATIVE NG/ML (CUTOFF=50); HYDROXYMIDAZOLAM >2000 NG/ML (CUTOFF=50); HYDROXYTRIAZOLAM CONF NEGATIVE NG/ML (CUTOFF=50); TEMAZEPAM CONF NEGATIVE NG/ML (CUTOFF=50)
== END 2017-02-24 09:00 | disposition home or self-care (01) | DRG 310 ==
LOC: ENRESERVDT → ENRESERVTM → EDBD 04:05 → C.EDB 04:06 → C.MSICU 05:26
PROVIDERS: ADMIT Hospitalist; ATTEND Hospitalist
DX: I47.2 Ventricular tachycardia (principal); I48.91 Unspecified atrial fibrillation; Z85.46 Personal history of malignant neoplasm of prostate; Z95.810 Presence of automatic (implantable) cardiac defibrillator; Z79.82 Long term (current) use of aspirin; E07.89 Other specified disorders of thyroid; R74.0 Nonspecific elevation of levels of transaminase and lactic acid dehydrogenase [LDH]; E78.00 Pure hypercholesterolemia, unspecified; E78.5 Hyperlipidemia, unspecified